=== PATIENT | male | born 1985 | race Caucasian/White ===

== ENCOUNTER 2018-10-25 20:47 | Inpatient (IN) ==
[2018-10-25] MEDS ORDERED: Piperacillin/Tazobactam 3.375 GM in Water for inj. (sterile) 20 ML IVP ONE (21:32)
[2018-10-25] MEDS ORDERED: Ketorolac 15 MG/ML VIAL IVP ONE (21:32)
[2018-10-25] MEDS ORDERED: 0.9 % Sodium Chloride 1,000 ML IVC ONE (21:32)
[2018-10-25] MEDS ORDERED: Piperacillin/Tazobactam 3.375 GM in 0.9 % Sodium Chloride Mini Bag 100 ML IVPB ONE (21:36)
[2018-10-25 21:57] LABS: Basophils % 0.7 %; Eosinophils # 0.1 K/mcL (0.0-0.6); Eosinophils % 1.5 %; Hematocrit 42.8 % (37.5-50.1); Hemoglobin 14.4 g/dL (12.9-16.9); Immature Granulocytes % 0.3 % (0-4); Lymphocytes # 1.9 K/mcL (0.6-4.6); Lymphocytes % 30.2 %; Mean Corpuscular HGB Conc 33.6 g/dL (31.6-35.5); Mean Corpuscular Hemoglobin 27.5 pg (28.0-33.3); Mean Corpuscular Volume 81.7 fL (83.0-100.0); Mean Platelet Volume 12.7 fL (9.4-12.4); Monocytes # 0.6 K/mcL (0.0-1.3); Monocytes % 10.1 %; Neutrophils # 3.5 K/mcL (1.6-8.9); Platelet Count 148 K/mcL (140-400); Red Blood Count 5.24 M/mcL (4.19-5.50); Red Cell Distribution Width 12.3 % (11.5-14.5); Segmented Neutrophils % 57.2 %; White Blood Count 6.1 K/mcL (4.3-11.1)
--- NOTE | 2018-10-25 21:59 | Emergency Department Note ---
Disposition Clinical Impression: Cellulitis of leg Qualifiers: Laterality: left Qualified Code(s): L03.116 - Cellulitis of left lower limb Disposition: Home, Self-Care Condition: Fair Forms: ED Satisfaction Letter Time of Disposition: 23:30 Extremity Problem HPI - General Chief complaint: ED Wound/Laceration Stated complaint: Wound on L Knee Time Seen by Provider: 10/25/18 21:25 Source: patient Mode of arrival: private vehicle Limitations: no limitations Nursing Notes Reviewed: Yes Vital Signs Reviewed: Yes - History of Present Illness Pt Subjective Complaint: extremity pain, extremity swelling, other ("infected wound") Onset (ago): day(s) (3) Consistency: constant Injury Location: left Pain Scale: 2 Quality: aching, dull Radiation: distal Improves with: nothing Worsens with: nothing Associated symptoms: Reports: fever, change in appearance, swelling, redness. Denies: back pain, rash Context: trauma (Leg caught between two logs at work 11 days ago. Had a laceration that has not fully healed. Now has signs of infection in leg.) - Related Data Allergies Allergy/AdvReac Type Severity Reaction Status Date / Time No Known Allergies Allergy Verified 10/25/18 21:08 All systems ED: reviewed and negative except as stated. Review of Systems: As Per HPI Constitutional: Reports: fever (today). Denies: chills, weakness, weight change Eyes: Denies: eye pain, eye discharge, vision change Cardiovascular: Denies: chest pain, palpitations Respiratory: Denies: cough, dyspnea, wheezes Gastrointestinal: Denies: abdominal pain, nausea, vomiting Musculoskeletal: Denies: back pain, neck pain, joint swelling, arthralgia, myalgia Integumentary: Denies: rash, pruritus Neurological: Denies: headache, weakness, numbness, paresthesias Hematological/Lymphatic: Denies: easy bleeding, easy bruising, lymphadenopathy Past Medical History - Past Medical History Attestation: Yes The following information was validated with the patient. Source: patient Medical history: Reports: no medical history Surgical history: Reports: no surgical history Psychiatric history: Reports: no psych history - Social History Smoking Status: Current some day smoker Smokeless Tobacco Status: Yes Alcohol use: Reports: none Drug use: Reports: none Physical Exam - General Limitations: no limitations General appearance: alert, in no apparent distress - Head Head exam: atraumatic, normocephalic, normal inspection - Eye Eye exam: Present: normal appearance. Absent: scleral icterus, conjunctival injection, periorbital swelling - ENT ENT exam: mucous membranes moist - Neck Neck exam: Present: normal inspection, trachea midline. Absent: meningismus - Respiratory Respiratory exam: Present: normal lung sounds bilaterally. Absent: respiratory distress - Cardiovascular Cardiovascular exam: Present: regular rate, normal rhythm - Extremities Exam Extremities exam: Present: tenderness, normal capillary refill. Absent: calf tenderness - Expanded Lower Extremity Exam Hip/Pelvis exam: Present: full ROM Knee exam: Present: tenderness (mild left medial), swelling (mild left), laceration (left medial 2.5cm x 1cm x 4mm. No active bleeding, no FB. Gr anulation tissue present). Absent: full ROM Lower leg exam: Present: tenderness, swelling, erythema, Achilles tendon intact. Absent: ecchymosis Ankle exam: Present: swelling (mild left). Absent: tenderness Foot/toe exam: Present: normal inspection, full ROM. Absent: tenderness, swelling, erythema Neurovascular/Tendon exam: Present: normal capillary refill, normal fine/light touch. Absent: pulse deficit, motor deficit, sensory deficit, extremity cold to touch, pallor, foot drop Gait: antalgic - Neurological Exam Neurological exam: Present: alert, oriented X3, CN II-XII intact. 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 He states that he was seen in an ER that day and has been treating the wound at home. About 3 days ago he noticed increasing pain and swelling in the leg. He was going to come to the ER then, but his went in to labor. He has been here with her since then. Yesterday and this AM he had a f ever. He denies paraesthesias, weakness, nausea/vomiting. He states that the pain in the knee is "Really not that bad" and rates it as a 2/10. The wound and adjacent skin looks good, but he has cellulitis posterior to the wound and in the lower leg. Currently afebrile with normal vitals. Labs and meds ordered. Patient's tetanus shot is up to date per his report. Patient's labs are normal. X-ray was read by the radiologist as no foreign body no acute bony abnormality. Soft tissue swelling. No gas. Patient has very good range of motion of the knee and describes minimal pain. He does not appear to have a large joint effusion. The joint is not warm and the cellulitis is actually distal to the knee. Do not suspect septic arthritis. Ortho was consult started. He will see the patient tomorrow. Case discussed with Dr. Royal. He will accept patient for admission. - Consultations Consultation #1: Dr. Edmonds consulted for this patient. He will see the patient tomorrow. Vital Signs Temperature 98.7 F 10/25/18 21:09 Pulse Rate 90 10/25/18 21:09 Respiratory Rate 20 10/25/18 21:09 Blood Pressure 143/94 10/25/18 21:09 O2 Sat by Pulse Oximetry 99 10/25/18 21:09 Temperature 98.7 F 10/25/18 21:09 Pulse Rate 90 10/25/18 21:09 Respiratory Rate 20 10/25/18 21:09 Blood Pressure 143/94 10/25/18 21:09 O2 Sat by Pulse Oximetry 99 10/25/18 21:09 Oxygen Delivery Oxygen Delivery Room Air Extremity Problem, Nontraumati - Differential Diagnosis Likely: cellulitis. Unlikely: superficial thrombophlebitis, deep venous thrombosis, compartment syndrome, septic joint, arterial vascular disorder - Medical Records Medical records reviewed: Yes I reviewed the patient's medical records. - Lab Data Lab results reviewed: Yes I reviewed the patient's lab results. Lab results narrative: Laboratory Last Values WBC 6.1 K/mcL (4.3-11.1) 10/25/18 21:45 RBC 5.24 M/mcL (4.19-5.50) 10/25/18 21:45 Hgb 14.4 g/dL (12.9-16.9) 10/25/18 21:45 Hct 42.8 % (37.5-50.1) 10/25/18 21:45 MCV 81.7 fL (83.0-100.0) L 10/25/18 21:45 MCH 27.5 pg (28.0-33.3) L 10/25/18 21:45 MCHC 33.6 g/dL (31.6-35.5) 10/25/18 21:45 RDW 12.3 % (11.5-14.5) 10/25/18 21:45 Plt Count 148 K/mcL (140-400) 10/25/18 21:45 MPV 12.7 fL (9.4-12.4) H 10/25/18 21:45 Immature Gran % 0.3 % (0-4) 10/25/18 21:45 Seg Neutrophils % 57.2 % 10/25/18 21:45 30.2 % 10/25/18 21:45 10.1 % 10/25/18 21:45 1.5 % 10/25/18 21:45 0.7 % 10/25/18 21:45 3.5 K/mcL (1.6-8.9) 10/25/18 21:45 1.9 K/mcL (0.6-4.6) 10/25/18 21:45 0.6 K/mcL (0.0-1.3) 10/25/18 21:45 0.1 K/mcL (0.0-0.6) 10/25/18 21:45 0.0 K/mcL (0.0-0.2) 10/25/18 21:45 Sodium 137 mEq/L (136-145) 10/25/18 21:45 Potassium 3.8 mEq/L (3.5-5.1) 10/25/18 21:45 Chloride 104 mEq/L (98-107) 10/25/18 21:45 Carbon Dioxide 23 mEq/L (23-29) 10/25/18 21:45 BUN 8 mg/dL (6-20) 10/25/18 21:45 0.94 mg/dL (0.70-1.30) 10/25/18 21:45 Est GFR ( Amer) > 60 (> 60) 10/25/18 21:45 Est GFR (Non-Af Amer) > 60 (> 60) 10/25/18 21:45 9 (6-26) 10/25/18 21:45 Glucose 112 mg/dL (70-105) H 10/25/18 21:45 283 (280-300) 10/25/18 21:45 Lactic Acid 0.8 mmol/L (0.5-2.2) 10/25/18 21:45 Calcium 9.7 mg/dL (8.6-10.3) 10/25/18 21:45 Result diagrams: 10/25/18 21:45 10/25/18 21:45 Lab Results 10/25/18 10/25/18 10/25/18 Range/Units 21:45 21:45 21:45 WBC 6.1 (4.3-11.1) K/mcL RBC 5.24 (4.19-5.50) M/mcL Hgb 14.4 (12.9-16.9) g/dL Hct 42.8 (37.5-50.1) % MCV 81.7 L (83.0-100.0) fL MCH 27.5 L (28.0-33.3) pg MCHC 33.6 (31.6-35.5) g/dL RDW 12.3 (11.5-14.5) % Plt Count 148 (140-400) K/mcL MPV 12.7 H (9.4-12.4) fL Immature Gran % 0.3 (0-4) % Seg Neutrophils % 57.2 % Lymphocytes % 30.2 % Monocytes % 10.1 % Eosinophils % 1.5 % Basophils % 0.7 % Neutrophils # 3.5 (1.6-8.9) K/mcL Lymphocytes # 1.9 (0.6-4.6) K/mcL Monocytes # 0.6 (0.0-1.3) K/mcL Eosinophils # 0.1 (0.0-0.6) K/mcL Basophils # 0.0 (0.0-0.2) K/mcL Sodium 137 (136-145) mEq/L Potassium 3.8 (3.5-5.1) mEq/L Chloride 104 (98-107) mEq/L Carbon Dioxide 23 (23-29) mEq/L BUN 8 (6-20) mg/dL Creatinine 0.94 (0.70-1.30) mg/dL Est GFR ( Amer) > 60 (> 60) Est GFR (Non-Af Amer) > 60 (> 60) BUN/Creatinine Ratio 9 (6-26) Glucose 112 H (70-105) mg/dL Calculated Osmolality 283 (280-300) Lactic Acid 0.8 (0.5-2.2) mmol/L Calcium 9.7 (8.6-10.3) mg/dL - Radiology Data Radiology results reviewed: Yes I reviewed the patient's radiology results. Knee X-Ray 10/25/18 21:35 IMPRESSION: Soft tissue swelling along the medial knee without evidence of soft tissue gas or radiopaque foreign body. No underlying acute osseous abnormality or joint effusion. D/ / Francis Chapin / Francis Chapin Interpreting Provider: Francis Chapin
[2018-10-25 22:16] LABS: BUN/Creatinine Ratio 9 (6-26); Blood Urea Nitrogen 8 mg/dL (6-20); Calcium 9.7 mg/dL (8.6-10.3); Carbon Dioxide 23 mEq/L (23-29); Chloride 104 mEq/L (98-107); Glucose 112 mg/dL (70-105); Osmolality,Calculated 283 (280-300); Potassium 3.8 mEq/L (3.5-5.1); Sodium 137 mEq/L (136-145); eGFR For African Americans > 60 (> 60); eGFR For Non-African Americans > 60 (> 60)
[2018-10-25] MEDS ORDERED: Bacitracin/Polymyxin B PACKET TP ONE (23:38)
[2018-10-26] MEDS ORDERED: Naloxone 0.4 MG/ML INJ IVP PRN (04:38)
[2018-10-26] MEDS ORDERED: Isovue-370 500 ML BOTTLE IVP ONE (04:47)
[2018-10-26] MEDS: 0.9 % Sodium Chloride 1,000 ML IVC SCH ×2 (05:10→19:54)
--- NOTE | 2018-10-26 06:53 | Internal Med History&Physical ---
Date of Encounter: 10/26/18 Time of Encounter: 04:10 Internal Medicine - H&P: HPI Chief complaint: Cellulitis left lower extremity Admitted From: Emergency Dept Plans for Post Hospital Care: Home History of present illness: Mr. Cerrato is a 33 year old male Patient presented to the emergency room after being seen by a labor and delivery nurse while his was giving to his child. He fell at work about 11 weeks ago and ended up with a wound on his left leg he at that time got it cleaned up but did not start any antibiotics. The wound seemed to be healing but lately over the last few days it has been turning red and becoming sore. When he came to the hospital with his he had the labor and delivery nurse look at the wound and she recommended he come to the emergency room to be evaluated. He had been having fevers at home and the redness has been steadily increasing over the last few days. 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 Vital signs in the emergency room were within normal limits. CBC and BMP were both within normal limits. Left knee x-ray showed soft tissue swelling along the medial knee without evidence of soft tissue gas or radiopaque foreign body. There is no underlying acute osseous abnormality or joint effusion. The emergency department contacted lead applications developer orthopedic surgery, and they agreed to see the patient in the morning. He was started on vancomycin and Zosyn. B lood cultures were drawn. He was admitted to the hospital for further management. Upon my evaluation, patient is resting comfortably in the hospital bed in no acute distress. He denies chest pain, abdominal pain, nausea, vomiting, diarrhea and constipation. He has no other wounds. He denies significant family medical history. He is a full code. Emergency department documentation indicates that the injury was about 11 days ago. The patient clarified this and states that it was 11 weeks ago. Past Med Surg Social Fam HX - Past Medical History Medical history: no medical history Psychiatric history: anxiety - Past Surgical History Surgical History: no surgical history - Social History Smoking Status: Current some day smoker Packs per day: 05/09 Smokeless Tobacco Status: Yes Alcohol use: rarely Drug use: none - Family History Grandmother Living Status: Age at : 70 Hx Family Cancer: Yes (breast cancer) Internal Medicine - H&P: Meds No Known Home Drugs 10/26/18 [History] Allergy/AdvReac Type Severity Reaction Status Date / Time No Known Allergies Allergy Verified 10/25/18 21:08 All Systems PM: A 10-system review of systems was performed and is negative for pertinent findings except as documented above in the HPI. - Constitutional Vitals: Temp Pulse Resp BP Pulse Ox 98.4 F 81 16 111/66 98 10/26/18 05:48 10/26/18 05:48 10/26/18 05:48 10/26/18 05:48 10/26/18 05:48 General appearance: Present: cooperative, A&O X 3, pleasant, no acute distress, answers questions appropriately Exam: - - Head Head exam: Present: normal inspection - Eye Eye exam: Present: EOMI, normal appearance - Respiratory Respiratory exam: Present: CTAB. Absent: rales, respiratory distress, rhonchi, wheezes - Cardiovascular Cardiovascular exam: Present: RRR. Absent: diastolic murmur, systolic murmur - GI/Abdominal GI/Abdominal exam: Present: normal bowel sounds, soft. Absent: tenderness - Extremities Exam Extremities exam: Present: tenderness, warm, radial pulses palpable and symmetrical. Absent: calf tenderness, pedal edema Additional comments: Left leg tenderness around medial knee at site of wound - Neurological Exam Neurological exam: Present: no focal deficits, strengths equal and symetr throughout. Absent: motor sensory deficit, facial droop, speech deficit - Skin Skin exam: Present: dry, erythema, warm Additional comments: Left leg as deep wound approximately 3cm long at medial distal thigh near knee. Erythema surrounding wound, with irregularly shape on rob area. No wound at lower leg. Internal Med - H&P Results - Labs CBC & Chem 7: 10/25/18 21:45 10/25/18 21:45 Labs: Short CBC 10/25/18 Range/Units 21:45 WBC 6.1 (4.3-11.1) K/mcL Hgb 14.4 (12.9-16.9) g/dL Hct 42.8 (37.5-50.1) % Plt Count 148 (140-400) K/mcL Neutrophils # 3.5 (1.6-8.9) K/mcL BMP 10/25/18 21:45 Sodium 137 Potassium 3.8 Chloride 104 Carbon Dioxide 23 BUN 8 Creatinine 0.94 Glucose 112 H Calcium 9.7 - Impressions ITS Impressions Knee X-Ray 10/25/18 21:35 IMPRESSION: Soft tissue swelling along the medial knee without evidence of soft tissue gas or radiopaque foreign body. No underlying acute osseous abnormality or joint effusion. D/ / Francis Chapin / Francis Chapin Interpreting Provider: Francis Chapin - Assessment and Plan (1) Cellulitis of leg Current Visit: Yes Status: Acute Assessment and plan: Patient has a wound in the left medial side of his leg due to a injury at work 11 weeks ago. Orthopedic surgery contacted due to proximity to the knee. He was started on IV antibiotics in the ER. Follow-up blood cultures Follow-up orthopedic surgery recommendations CT left lower extremity with contrast Continue IV antibiotics Nothing by mouth until evaluated by orthopedic surgery Monitor for worsening signs of infection Qualifiers: Laterality: left Qualified Code(s): L03.116 - Cellulitis of left lower limb (2) DVT prophylaxis Current Visit: Yes Status: Acute Assessment and plan: Ambulation. SCDs contraindicated due to cellulitis. We will hold off on chemical anticoagulation until evaluated by orthopedic surgery. - Time Spent With Patient Total time spent is greater than 50% in coordination of care (as documented) at patient's floor/unit and/or counseling patient: Greater than 35 minutes
[2018-10-26] MEDS ORDERED: Ketorolac 15 MG/ML VIAL IVP PRN (07:05)
[2018-10-26] MEDS: Piperacillin/Tazobactam 3.375 GM in 0.9 % Sodium Chloride Mini Bag 100 ML IVPB SCH ×2 (07:46→16:07)
[2018-10-26 08:07] LABS: Hematocrit 42.1 % (37.5-50.1); Hemoglobin 13.8 g/dL (12.9-16.9); Mean Corpuscular HGB Conc 32.8 g/dL (31.6-35.5); Mean Corpuscular Hemoglobin 27.7 pg (28.0-33.3); Mean Corpuscular Volume 84.5 fL (83.0-100.0); Platelet Count 140 K/mcL (140-400); Red Blood Count 4.98 M/mcL (4.19-5.50); Red Cell Distribution Width 12.4 % (11.5-14.5); White Blood Count 5.8 K/mcL (4.3-11.1)
[2018-10-26 08:08] LABS: BUN/Creatinine Ratio 11 (6-26); Blood Urea Nitrogen 9 mg/dL (6-20); Calcium 9.4 mg/dL (8.6-10.3); Carbon Dioxide 25 mEq/L (23-29); Chloride 105 mEq/L (98-107); Glucose 107 mg/dL (70-105); Osmolality,Calculated 289 (280-300); Sodium 140 mEq/L (136-145); eGFR For African Americans > 60 (> 60); eGFR For Non-African Americans > 60 (> 60)
--- NOTE | 2018-10-26 11:46 | Orthopedic Consult Note ---
Date of Encounter: 10/26/18 Time of Encounter: 11:44 Assessment and Plan (1) Cellulitis of leg Current Visit: Yes Status: Acute Diagnosis and treatment recommendations were discussed with the patient. Recommend non surgical management with the improvement he has had since starting antibiotics. Continue IV antibiotics today with likely transition to PO tomorrow. Wet to dry dressing changes bid. Activity as tolerated. Qualifiers: Laterality: left Qualified Code(s): L03.116 - Cellulitis of left lower limb History of Present Illness HPI: Mr. Cerrato is a 33 year old male admitted with left leg cellulitis. He fell at work about 11 weeks ago and ended up with a wound on his posteromedial left leg. Began getting left leg erythema and drainage from nonhealing wound. Low grade fevers at home. Started on IV atbx last night with significant improvement in erythema. He denies chest pain, abdominal pain, nausea, vomiting, diarrhea and constipation. He has no other wounds. Past Med Surg Social Fam HX - Past Medical History Medical history: no medical history Psychiatric history: anxiety - Past Surgical History Surgical History: no surgical history - Social History Smoking Status: Current some day smoker Packs per day: 05/09 Smokeless Tobacco Status: Yes Alcohol use: rarely Drug use: none - Family History Grandmother Living Status: Age at : 70 Hx Family Cancer: Yes (breast cancer) Medications and Allergies No Known Home Drugs 10/26/18 [History] Allergy/AdvReac Type Severity Reaction Status Date / Time No Known Allergies Allergy Verified 10/25/18 21:08 All Systems Reviewed: The remainder of the systems were reviewed and are negative except as noted in the HPI Physical Exam - Constitutional Vitals: Temp Pulse Resp BP Pulse Ox 98.5 F 59 17 124/79 97 10/26/18 10:46 10/26/18 10:46 10/26/18 10:46 10/26/18 10:46 10/26/18 10:46 Exam: Consult Exam: Constitutional -Vitals reviewed -The patient is well developed and well nourished. -Mood is pleasant. -The patient is well groomed. Psychiatric -The patient is fully alert and oriented x 3. Respiratory: -Respiratory effort normal Abdomen: -Soft abdomen -Non tender -Non distended: Left upper extremity: -No deformities. The overlying skin is intact. No obvious signs of acute trauma. -No tenderness to palpation throughout. -No significant pain with passive motion of the shoulder, elbow, wrist, and fingers within the limits of the bed. -Able to make an "OK" sign, cross the index and long fingers, and extend the thumb. -Sensation grossly intact to light touch throughout the median, radial, and ulnar distributions. -Radial pulse is present; Fingers have good capillary refill. Right upper extremity: -No deformities. The overlying skin is intact. No obvious signs of acute trauma. -No tenderness to palpation throughout. -No significant pain with passive motion of the shoulder, elbow, wrist, and fingers within the limits of the bed. -Able to make an "OK" sign, cross the index and long fingers, and extend the thumb. -Sensation grossly intact to light touch throughout the median, radial, and ulnar distributions. -Radial pulse is present; Fingers have good capillary refill. Left lower extremity: -No deformities. posteromedial medial wound left distal thigh with granulation tissue and some serous drainage. Minimal surrounding erythema. Distal erythema resolved. -No tenderness to palpation throughout. -No pain with passive motion of the hip, knee, ankle, and toes within the limits of the bed. -Able to dorsiflex and plantarflex the ankle and toes. -Sensation is grossly intact to light touch throughout the sural, saphenous, superficial peroneal, and deep peroneal distributions. -Toes have good capillary refill. Right lower extremity: -No deformities. The overlying skin is intact. No obvious signs of acute trauma. -No tenderness to palpation throughout. -No pain with passive motion of the hip, knee, ankle, and toes within the limits of the bed. -No pain with axial loading of the thigh. -Able to dorsiflex and plantarflex the ankle and toes. -Sensation is grossly intact to light touch throughout the sural, saphenous, superficial peroneal, and deep peroneal distributions. -Toes have good capillary refill. Results - Labs Result Diagrams: 10/26/18 07:10 10/26/18 07:10 Labs: Abnormal lab results MCV 81.7 fL (83.0-100.0) L 10/25/18 21:45 MCH 27.7 pg (28.0-33.3) L 10/26/18 07:10 MPV 13.0 fL (9.4-12.4) H 10/26/18 07:10 Glucose 107 mg/dL (70-105) H 10/26/18 07:10 H & H 10/25/18 10/26/18 Range/Units 21:45 07:10 Hgb 14.4 13.8 (12.9-16.9) g/dL Hct 42.8 42.1 (37.5-50.1) % All other labs normal. Consult Discharge Plan - Plan Referrals: NONE,PCP [Primary Care Provider] -
[2018-10-27] MEDS: Piperacillin/Tazobactam 3.375 GM in 0.9 % Sodium Chloride Mini Bag 100 ML IVPB SCH ×2 (00:39→08:02)
[2018-10-27 09:12] LABS: Basophils % 0.7 %; Eosinophils # 0.1 K/mcL (0.0-0.6); Eosinophils % 1.8 %; Hematocrit 43.9 % (37.5-50.1); Hemoglobin 14.3 g/dL (12.9-16.9); Immature Granulocytes % 0.3 % (0-4); Lymphocytes # 2.2 K/mcL (0.6-4.6); Lymphocytes % 36.4 %; Mean Corpuscular HGB Conc 32.6 g/dL (31.6-35.5); Mean Corpuscular Hemoglobin 27.2 pg (28.0-33.3); Mean Corpuscular Volume 83.5 fL (83.0-100.0); Mean Platelet Volume 12.9 fL (9.4-12.4); Monocytes # 0.7 K/mcL (0.0-1.3); Monocytes % 11.6 %; Neutrophils # 2.9 K/mcL (1.6-8.9); Platelet Count 165 K/mcL (140-400); Red Blood Count 5.26 M/mcL (4.19-5.50); Red Cell Distribution Width 12.4 % (11.5-14.5); Segmented Neutrophils % 49.2 %
[2018-10-27 09:30] LABS: BUN/Creatinine Ratio 12 (6-26); Blood Urea Nitrogen 12 mg/dL (6-20); Calcium 9.7 mg/dL (8.6-10.3); Carbon Dioxide 26 mEq/L (23-29); Chloride 104 mEq/L (98-107); Glucose 101 mg/dL (70-105); Osmolality,Calculated 286 (280-300); Potassium 4.3 mEq/L (3.5-5.1); Sodium 138 mEq/L (136-145); eGFR For African Americans > 60 (> 60); eGFR For Non-African Americans > 60 (> 60)
--- NOTE | 2018-10-27 10:41 | Orthopedics Progress Note ---
Date of Encounter: 10/27/18 Time of Encounter: 10:38 - Assessment and Plan (1) Cellulitis of leg Current Visit: Yes Status: Acute Qualifiers: Laterality: left Qualified Code(s): L03.116 - Cellulitis of left lower limb Subjective Interval history: Doing well with no overnight issues. No fevers, chills. Vitals reviewed NAD, AAOx3 LLE: Incision with minimal serosanguineous drainage No surrounding erythema or fluctuance No pain with full motion of knee No erythema down leg LLE cellulitis - resolving Exam improved significantly since admission. Recommend transition to PO antibiotics with wet to dry dressing changes bid. Activity as tolerated. Will s/o Objective Vital signs: Vital Signs Temp Pulse Resp BP Pulse Ox 10/27/18 07:03 98.1 F 57 18 107/65 97 10/27/18 04:31 98.1 F 67 16 112/72 99 10/26/18 22:56 98.8 F 83 16 147/81 98 10/26/18 18:49 98.5 F 76 17 125/81 98 10/26/18 15:43 98.7 F 77 16 129/74 93 10/26/18 10:46 98.5 F 59 17 124/79 97 Intake and Output 10/26/18 10/27/18 10/27/18 23:59 07:59 15:59 Intake Total 450 / 1700 400 / 880 480 / 880 Output Total 0 / 0 Balance 450 / 1700 400 / 880 480 / 880 Intake: IV Fluids 200 / 1450 350 / 350 Zosyn 3.375 GM In 0.9 % Sodium 200 / 200 100 / 100 Chloride (Mini-Bag +) 100 ML @ 25 mls/hr IVPB Q8HR JOSE E Rx#: [id number] Vancocin 1,250 MG In 0.9 % 250 / 250 Sodium Chloride 250 ML @ 166. 667 mls/hr IVPB Q12H JOSE E Rx#: [id number] Oral 250 / 250 50 / 530 480 / 530 Output: Urine 0 / 0 Other: Meal Breakfast Percent of Meal Consumed 100% # Voids 1 1 Weight 90.18 kg Patient Weight 10/27/18 23:59 Weight 90.18 kg - Labs CBC & BMP: 10/27/18 08:38 10/27/18 08:38 Labs: Abnormal lab results MCV 81.7 fL (83.0-100.0) L 10/25/18 21:45 MCH 27.2 pg (28.0-33.3) L 10/27/18 08:38 MPV 12.9 fL (9.4-12.4) H 10/27/18 08:38 Glucose 107 mg/dL (70-105) H 10/26/18 07:10 Consult Discharge Plan - Plan Referrals: NONE,PCP [Primary Care Provider] -
[2018-10-27 10:58] VITALS: BP 129/74
--- NOTE | 2018-10-27 12:30 | Discharge Summary ---
- NOTES TO OUTPATIENT PROVIDER Notes to Outpatient Provider: PCP in 5 to 7 days. Follow up out pt with ortho. Orthopedic physician to call with an appointment. Orders not resulted at time of discharge: Pending orders 10/25/18 21:40 Culture,Blood [BC] Stat Date of Encounter: 10/27/18 Time of Encounter: 12:28 - Discharge Diagnosis (1) Cellulitis of leg Priority: Primary Status: Acute Assessment and Plan: Patient has a wound in the left medial side of his leg due to a injury at work 11 weeks ago. Orthopedic surgery contacted due to proximity to the knee. He was started on IV antibiotics in the ER. Follow-up blood cultures. Follow-up orthopedic surgery recommendations. 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 Clinically appears to be improving. Will DC on Clindamycin for 12 days for total of 14 days of antibiotics total. Pt is s/p incision and drainage by orthopedic physician and cultures being sent. Qualifiers: Laterality: left Qualified Code(s): L03.116 - Cellulitis of left lower limb (2) DVT prophylaxis Priority: Secondary Status: Acute Assessment and Plan: Ambulation. SCDs contraindicated due to cellulitis. Held off on chemical anticoagulation until evaluated by orthopedic surgery. Hospital course: History of present illness: Mr. Cerrato is a 33 year old male Patient presented to the emergency room after being seen by a labor and delivery nurse while his was giving to his child. He fell at work about 11 weeks ago and ended up with a wound on his left leg he at that time got it cleaned up but did not start any antibiotics. The wound seemed to be healing but lately over the last few days it has been turning red and becoming sore. When he came to the hospital with his he had the labor and delivery nurse look at the wound and she recommended he come to the emergency room to be evaluated. He had been having fevers at home and the redness has been steadily increasing over the last few days. 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 Discharge discussed with: patient - Time Spent with Patient Total time spent providing and/or coordinating discharge services: Time spent: Greater than 30 minutes - Discharge Medications Prescriptions: No Action Non-Formulary Medication 1 tab PO DAILY Home Medications: Non-Formulary Medication 1 tab PO DAILY 10/26/18 [History] Clindamycin [Cleocin] 300 mg PO TID 12 Days #36 capsule 10/27/18 [Rx] Allergies/Adverse Reactions: Allergy/AdvReac Type Severity Reaction Status Date / Time No Known Allergies Allergy Verified 10/26/18 13:52 Date of admission: 10/25/18 23:42 Primary care physician: PCP NONE Consults: 10/25/18 23:20 Consult to Orthopedic Surgery [CONS] Stat Consulting Provider: Lukas Edmonds Reason for Consult: Left leg wound with late cellulitis Time Notified: 21:35 Call Completed: Yes Discharging clinician: Effie Avila Anticipated date of discharge: 10/27/18 - Constitutional Vitals: Temp Pulse Resp BP Pulse Ox 98.3 F 83 18 129/74 95 10/27/18 10:56 10/27/18 10:56 10/27/18 10:56 10/27/18 10:56 10/27/18 10:56 General appearance: Present: cooperative, A&O X 3, pleasant, no acute distress, answers questions appropriately Exam: . - Head Head exam: Present: atraumatic, normocephalic - Eye Eye exam: Present: PERRL, conjuntiva pink, sclera anicteric Pupils: Present: PERRL - Neck Neck exam general surgery: Present: supple, trachea midline. Absent: lymphadenopathy - Respiratory Respiratory exam: Present: CTAB. Absent: accessory muscle use, rales, rhonchi, wheezes - Cardiovascular Cardiovascular exam: Present: RRR, +S1, +S2. Absent: diastolic murmur, gallop, rubs, systolic murmur - GI/Abdominal GI/Abdominal exam: Present: normal bowel sounds, soft, no peritoneal signs. Absent: distended, tenderness - Extremities Exam Extremities exam: Present: warm, radial pulses palpable and symmetrical. Absent: calf tenderness, cyanotic, pedal edema Additional comments: decrease, erythema, edema, and pain or Left knee. - Neurological Exam Neurological exam: Present: CN II-XII intact, oriented X3, no focal deficits. Absent: pronater drift, facial droop, speech deficit - Skin Skin exam: Present: dry, intact - Patient Status Disposition: Home, Self-Care Condition: Good Overall status at discharge: patient is back to baseline - Discharge Instructions Follow Up With: NONE,PCP [Primary Care Provider] - - Diet and Activity Activity: increase activity as tolerated Diet: advance to your usual diet
[2018-10-27] MEDS ORDERED: Aminoglycoside Consult 1 EACH MC ONE (14:16)
== END 2018-10-27 14:17 | disposition home or self-care (01) | DRG 603 ==
LOC: EMEROOARM 20:47 → 3NENU 20:47
PROVIDERS: ADMIT Pediatrics; ATTEND Internal Medicine